=== PATIENT | male | born 1965 | race Native Hawaiian/Other Pacific Islander ===

== ENCOUNTER 2016-08-20 15:13 | Emergency (ER) | payer BC ==
[~2016-08-20] VITALS: Ht 170.2 cm; Wt 84.8 kg
[2016-08-20 15:33] LABS: PLATELET COUNT 245 K/uL (142-355)
[2016-08-20 15:34] LABS: SODIUM 133 mmol/L (136-145)
[2016-08-20] MEDS ORDERED: ASPIR-LOW81 MG OR (15:44)
[2016-08-20 15:47] LABS: PARTIAL THROMBOPLASTIN TIME 27.8 SECONDS (24.5-33.6)
[2016-08-20] MEDS ORDERED: ZORVOLEX35 MG PO (16:16)
[2016-08-20] MEDS ORDERED: MISO200T2 PO (16:16)
[2016-08-20 18:03] VITALS: BP 140/87; TEMP 98.5
== END 2016-08-20 18:04 | disposition home or self-care (01) ==
LOC: ED 15:13
PROVIDERS: Emergency Medicine
DX: M50.320 Other cervical disc degeneration, mid-cervical region, unspecified level (principal); M54.12 Radiculopathy, cervical region
CPT/HCPCS: 36415; 80048; 82550; 84484; 85027; 85610; 85730; 93005; 96374; 99284; J2270

== ENCOUNTER 2018-02-02 15:02 | Emergency (ER) | payer OTHER ==
[~2018-02-02] VITALS: Ht 170.2 cm; Wt 86.2 kg
[~2018-02-02 15:02] MED LIST: ASPIR-LOW81 MG OR; MISO200T2 PO; ZORVOLEX35 MG PO
[2018-02-02 16:12] LABS: PLATELET COUNT 275 K/uL (142-355)
[2018-02-02 16:15] LABS: POTASSIUM 3.5 mmol/L (3.6-5.2)
[2018-02-02 19:10] VITALS: BP 155/84; TEMP 98.1
== END 2018-02-02 19:10 | disposition home or self-care (01) ==
LOC: ED 15:02
PROVIDERS: Family Medicine
DX: E11.42 Type 2 diabetes mellitus with diabetic polyneuropathy (principal); M47.892 Other spondylosis, cervical region; R00.0 Tachycardia, unspecified
CPT/HCPCS: 36415; 80053; 81000; 85027; 85610; 85730; 93005; 99283

== ENCOUNTER 2018-02-04 14:52 | Emergency (ER) | payer OTHER ==
[~2018-02-04] VITALS: Ht 170.2 cm; Wt 86.2 kg
[2018-02-04 15:01] VITALS: TEMP 98.8
[2018-02-04 15:38] VITALS: BP 156/82
== END 2018-02-04 15:38 | disposition home or self-care (01) ==
LOC: ED 14:52
DX: M54.12 Radiculopathy, cervical region (principal)
CPT/HCPCS: 99281

== ENCOUNTER 2018-10-15 22:18 | Emergency (ER) | payer OTHER ==
[~2018-10-15] VITALS: Ht 170.2 cm; Wt 86.2 kg
[2018-10-15 22:25] VITALS: TEMP 97.9
[2018-10-15 23:35] LABS: PLATELET COUNT 206 K/uL (142-355)
[2018-10-15 23:49] LABS: POTASSIUM 3.8 mmol/L (3.6-5.2)
[2018-10-16 00:45] VITALS: BP 147/94
== END 2018-10-16 00:46 | disposition home or self-care (01) ==
LOC: ED 22:18
PROVIDERS: Emergency Medicine
DX: R42 Dizziness and giddiness (principal); R00.0 Tachycardia, unspecified
CPT/HCPCS: 36415; 80053; 81000; 85027; 93005; 99283

== ENCOUNTER 2021-05-01 10:37 | Outpatient (CLI) | payer OTHER ==
[2021-05-01 11:21] LABS: PLATELET COUNT 194 K/uL (142-355)
[2021-05-01 11:33] LABS: POTASSIUM 4.3 mmol/L (3.6-5.2)
== END 2021-05-01 19:27 | disposition home or self-care (01) ==
LOC: LABW 10:37
PROVIDERS: ATTEND Internal Medicine
DX: I10 Essential (primary) hypertension (principal); L02.811 Cutaneous abscess of head [any part, except face]; M06.8A Other specified rheumatoid arthritis, other specified site; Z79.899 Other long term (current) drug therapy
CPT/HCPCS: 36415; 80053; 80061; 81000; 83036; 84439; 84443; 85027; 85652

== ENCOUNTER 2021-09-15 16:52 | Emergency (ER) | payer OTHER ==
[~2021-09-15] VITALS: Ht 170.2 cm; Wt 79.8 kg
[2021-09-15 17:58] LABS: POTASSIUM 4.4 mmol/L (3.6-5.2)
[2021-09-15 18:08] LABS: PLATELET COUNT 228 K/uL (142-355)
[2021-09-15 22:00] VITALS: BP 131/65; TEMP 98
== END 2021-09-15 22:00 | disposition home or self-care (01) ==
LOC: ED 16:52
PROVIDERS: Emergency Medicine
DX: R10.84 Generalized abdominal pain (principal)
CPT/HCPCS: 36415; 80053; 81000; 83690; 85027; 96360; 96361; 96375; 99284; J2270; J2405

== ENCOUNTER → 2021-10-01 | Outpatient (CLI) | payer OTHER ==
[2021-10-01 13:00] LABS: PLATELET COUNT 226 K/uL (142-355)
[2021-10-01 13:12] LABS: POTASSIUM 4.4 mmol/L (3.6-5.2)
== END ==
LOC: LAB 12:50
PROVIDERS: ATTEND Internal Medicine
DX: E11.9 Type 2 diabetes mellitus without complications (principal)
CPT/HCPCS: 80053; 83036; 85027

== ENCOUNTER 2022-05-08 10:14 | Outpatient (CLI) | payer OTHER ==
[2022-05-08 10:34] LABS: PLATELET COUNT 225 K/uL (142-355)
[2022-05-08 11:05] LABS: POTASSIUM 4.1 mmol/L (3.6-5.2)
== END 2022-05-08 22:08 | disposition home or self-care (01) ==
LOC: LABW 10:14
PROVIDERS: ATTEND Internal Medicine
DX: E11.9 Type 2 diabetes mellitus without complications (principal)
CPT/HCPCS: 36415; 80053; 80061; 83036; 85027

== ENCOUNTER 2023-01-21 10:39 | Outpatient (CLI) | payer OTHER | END 2023-01-21 20:08 | disposition home or self-care (01) | LOC: RAD 10:39 | PROVIDERS: ATTEND Nurse Practitioner Family | DX: M06.09 Rheumatoid arthritis without rheumatoid factor, multiple sites (principal); M47.812 Spondylosis without myelopathy or radiculopathy, cervical region; M54.12 Radiculopathy, cervical region; Z79.631 Long term (current) use of antimetabolite agent; Z79.899 Other long term (current) drug therapy ==

== ENCOUNTER 2023-02-17 12:24 | Outpatient (CLI) | payer OTHER ==
[2023-02-17 12:50] LABS: PLATELET COUNT 221 K/uL (142-355)
[2023-02-17 13:10] LABS: POTASSIUM 4.7 mmol/L (3.6-5.2)
== END 2023-02-17 21:27 | disposition home or self-care (01) ==
LOC: CT 12:24
PROVIDERS: ATTEND Internal Medicine
DX: R55 Syncope and collapse (principal); R06.02 Shortness of breath; Z79.899 Other long term (current) drug therapy
CPT/HCPCS: 36415; 80053; 83880; 84443; 85027; 85379; Q9963

== ENCOUNTER 2023-02-23 10:28 | Outpatient (CLI) | payer OTHER | END 2023-02-23 21:53 | disposition home or self-care (01) | LOC: US 10:28 | PROVIDERS: ATTEND Internal Medicine | DX: I77.89 Other specified disorders of arteries and arterioles (principal) ==

== ENCOUNTER 2023-09-11 13:21 | Outpatient (CLI) | payer OTHER | END 2023-09-11 20:10 | disposition home or self-care (01) | LOC: LAB 13:21 | PROVIDERS: ATTEND Internal Medicine | DX: E11.8 Type 2 diabetes mellitus with unspecified complications (principal) | CPT/HCPCS: 87070; 87205 ==